=== PATIENT | female | born 1970 | race Two or more races ===

== ENCOUNTER 2020-12-10 17:04 | Emergency (ER) | payer BC, OTHER ==
[~2020-12-10] VITALS: Ht 165.1 cm; Wt 49.9 kg
[~2020-12-10 17:04] MED LIST: ESTR1TAB30
--- NOTE | 2020-12-10 17:30 | NUR ---
The patient bibs for c/o R wrist pain x 1 month on and off and got worst the past 2 days. Rates pain 8/10. Will continue to monitor the patient.
--- NOTE | 2020-12-10 18:17 | NUR ---
Patient discharged to home in stable condition. Written and verbal after care instructions given. Patient verbalizes understanding of instruction.
[2020-12-10 18:34] VITALS: BP 127/85
== END 2020-12-10 18:34 | disposition home or self-care (01) ==
LOC: ER 17:08
DX: M77.8 Other enthesopathies, not elsewhere classified (principal); Z88.8 Allergy status to other drugs, medicaments and biological substances
CPT/HCPCS: 73110